=== PATIENT | female | born 1990 | race Caucasian/White ===

== ENCOUNTER 2017-02-21 20:58 | Emergency (ER) | payer BC, OTHER ==
[2017-02-21] MEDS ORDERED: Sodium Chloride 0.9% 1,000 ML IV ONE (21:01)
[2017-02-21] MEDS ORDERED: methylPREDNISolone Sodium Succinate 125 MG/2 ML SDV IVPUSH ONE (21:01)
[2017-02-21] MEDS ORDERED: diphenhydrAMINE 50 MG/ML SDV IVPUSH ONE (21:01)
[2017-02-21] MEDS ORDERED: EPINEPHrine 1 MG/ML SDV IM ONE (21:04)
--- NOTE | 2017-02-21 21:21 | EDM.PDOC ---
ED HPI GENERAL MEDICAL PROBLEM - General Chief Complaint: Allergic Reaction Stated Complaint: ALLEGIC REACTION, [id number] Time Seen by Provider: 02/21/17 21:00 Source of Information: Reports: Patient History Limitations: Reports: No Limitations - History of Present Illness INITIAL COMMENTS - FREE TEXT/NARRATIVE: allergic reaction c/o starting at 2014 tonight. no different foods or contact with anything. Lips swollen, no SOB no difficulty swallowing Onset: Today, Sudden Location: Reports: Face Associated Symptoms: Reports: No Other Symptoms - Related Data Allergies Allergy/AdvReac Type Severity Reaction Status Date / Time No Known Allergies Allergy Verified 02/21/17 21:14 Home Meds: Home Meds Etonogestrel [Nexplanon] 68 mg SQ ASDIRECTED 02/21/17 [History] Multivitamin [Multivitamins] 1 each PO DAILY 02/21/17 [History] Past Medical History - Past Health History Medical/Surgical History: Denies Medical/Surgical History HEENT History: Reports: None Cardiovascular History: Reports: None Respiratory History: Reports: None Gastrointestinal History: Reports: None Genitourinary History: Reports: None 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 Musculoskeletal History: Reports: None Neurological History: Reports: None Psychiatric History: Reports: None Endocrine/Metabolic History: Reports: None Hematologic History: Reports: None Immunologic History: Reports: None Oncologic (Cancer) History: Reports: None Dermatologic History: Reports: None Social & Family History - Tobacco Use Smoking Status *Q: Former Smoker Years of Tobacco use: 1 Used Tobacco, but Quit: Yes Month Tobacco Last Used: january Second Hand Smoke Exposure: Yes - Alcohol Use Days Per Week of Alcohol Use: 2 Number of Drinks Per Day: 5 Total Drinks Per Week: 10 - Recreational Drug Use Recreational Drug Use: No ED ROS ALLERGIC REACTION - Review of Systems Review Of Systems: See Below Constitutional: Reports: No Symptoms HEENT: Reports: Vision Change, Other (swollen lips). Denies: Throat Swelling Respiratory: Denies: Shortness of Breath, Wheezing Cardiovascular: Reports: No Symptoms GI/Abdominal: Reports: No Symptoms Musculoskeletal: Reports: No Symptoms Skin: Denies: Urticaria Neurological: Reports: No Symptoms ED EXAM GENERAL NO PERIP PULSE - Physical Exam Exam: See Below Exam Limited By: No Limitations General Appearance: Alert, Mild Distress Eye Exam: Bilateral Eye: EOMI Ears: Normal External Exam Nose: Normal Inspection Throat/Mouth: No: Normal Lips (swollen upper greater than lower) Head: Atraumatic, Normocephalic Neck: Normal Inspection, Full Range of Motion Respiratory/Chest: No Respiratory Distress, Lungs Clear Cardiovascular: Normal Peripheral Pulses, Regular Rate, Rhythm GI/Abdominal: Normal Bowel Sounds, Soft Extremities: Normal Inspection Neurological: Alert, Oriented, Normal Cognition Skin Exam: Warm, Dry, Intact, Normal Color, No Rash Course - Vital Signs Last Recorded V/S: Last Vital Signs Temp 97 F 02/21/17 21:00 Pulse 93 02/21/17 21:00 Resp 18 02/21/17 21:00 BP 139/82 02/21/17 21:00 Pulse Ox 100 02/21/17 21:00 - Orders/Labs/Meds Meds: Medications Discontinued Medications Generic Name Dose Route Start Last Admin Trade Name Pbq PRN Reason Stop Dose Admin Diphenhydramine HCl 25 mg 02/21/17 21:01 02/21/17 21:07 Benadryl IVPUSH 02/21/17 21:02 25 mg ONETIME ONE Administration Epinephrine HCl 0.3 mg 02/21/17 21:04 Adrenalin IM 02/21/17 21:05 ONETIME ONE Sodium Chloride 1,000 mls @ 250 mls/hr 02/21/17 21:01 02/21/17 21:06 Normal Saline IV 02/22/17 01:00 250 mls/hr .BOLUS ONE Administration Methylprednisolone Sodium Succinate 125 mg 02/21/17 21:01 02/21/17 21:10 Solu-Medrol IVPUSH 02/21/17 21:02 125 mg ONETIME ONE Administration - Re-Assessments/Exams Free Text/Narrative Re-Assessment/Exam: 02/21/17 22:02 decrease in lip swelling, Lungs remain clear, no difficulty swallowing, no development of rash or hives. 02/22/17 03:31 Departure - Departure Time of Disposition: 22:03 Disposition: Home, Self-Care 01 Condition: Good Clinical Impression: Allergic reaction Qualifiers: Encounter type: initial encounter Qualified Code(s): T78.40XA - Allergy, unspecified, initial encounter - Discharge Information Instructions: Anaphylactic Reaction, Allergies Referrals: Gracia Moon [Primary Care Provider] - Forms: ED Department Discharge Additional Instructions: Urgent return if increased swelling to lips, diffulty breathing or rash Beneadryl 50mg at 1am then if swelling completely resolved may decrease to 25mg every 4 hours for 24 hours then every 4 hours as needed. Have benadryl available incase of recurrent similar symptoms in future
== END 2017-02-21 22:12 | disposition home or self-care (01) ==
LOC: DL.ED 20:58
DX: T78.40XA Allergy, unspecified, initial encounter (principal); Z87.891 Personal history of nicotine dependence
CPT/HCPCS: 96361; 96374; 96375; 99283; J1200; J2930; J7030